=== PATIENT | female | born 1955 | race Caucasian/White ===

== ENCOUNTER → 2024-08-18 09:30 | Outpatient (REF) | payer MEDICARE, SELFPAY | LOC: WDC 09:30 | PROVIDERS: ATTENDING PHYSICIAN Internal Medicine; REFERRING PHYSICIAN Obstetrics & Gynecology Gynecology | DX: Z12.31 Encounter for screening mammogram for malignant neoplasm of breast (principal); Z78.0 Asymptomatic menopausal state | CPT/HCPCS: 77063; 77067; 77080 ==